=== PATIENT | male | born 1975 | race Caucasian/White ===

== ENCOUNTER → 2017-07-13 | Outpatient (CLI) | payer BC ==
[~2017-07-13] MED LIST: NO HOME MEDICATIONS
== END ==
LOC: COL.RAD 10:08
DX: N32.89 Other specified disorders of bladder (principal); I10 Essential (primary) hypertension

== ENCOUNTER → 2017-08-09 | Outpatient (REF) ==
[2017-08-09 13:57] LABS: HIV 1/2 Antibodies Non-Reactive; HIV-1p24 Antigen Non-Reactive
[2017-08-09 23:32] LABS: HEPATITIS B SURFACE ANTIBODY 56.7 (()); HEPATITIS C VIRUS ANTIBODY Negative (())
== END ==
LOC: ZMSC 13:15
DX: Z01.89 Encounter for other specified special examinations (principal)

== ENCOUNTER → 2023-05-10 | Outpatient (CLI) | payer BC | LOC: COL.RAD 16:06 | DX: N20.0 Calculus of kidney (principal) | CPT/HCPCS: Q9967 ==

== ENCOUNTER → 2024-04-11 | Outpatient (CLI) | payer BC ==
[~2024-04-11] VITALS: Ht 180.3 cm; Wt 91.6 kg
[~2024-04-11] MED LIST changes: +COZAAR100 MG PO
[2024-04-11 16:23] VITALS: BP 142/78; PULSE 67; TEMP 97.9
[2024-04-11 17:05] VITALS: BP 144/87; PULSE 66
== END ==
LOC: COL.RAD 16:00
DX: M54.12 Radiculopathy, cervical region (principal)
CPT/HCPCS: J1100